=== PATIENT | male | born 1985 | race Caucasian/White ===

== ENCOUNTER 2017-08-02 17:22 | Emergency (ER) | payer SELFPAY ==
[2017-08-02 18:59] LABS: URINE BILIRUBIN NEGATIVE (NEGATIVE); URINE BLOOD NEGATIVE (NEGATIVE); URINE CLARITY CLEAR (Clear); URINE COLOR YELLOW (YELLOW); URINE GLUCOSE (UA) NEGATIVE (Normal)
[2017-08-02 19:00] LABS: URINE BACTERIA RARE (<OCC); URINE LEUKOCYTE ESTERASE NEGATIVE Leu/uL (Negative); URINE NITRATE NEGATIVE (NEGATIVE); URINE PROTEIN NEGATIVE (NEGATIVE); URINE UROBILINOGEN NORMAL mg/dL (0.2-1.0)
--- NOTE | 2017-08-02 19:15 | C.PDOC ---
History Of Present Illness 32 yr old male presents to the ER with evaluation of left ear pain for the past 2 days, associated with swollen lymph nodes in the neck, body aches, sore throat and subjective fever. Patient also reports of 1-2 episode of dysuria. Denies chills, ear discharge, nausea, vomiting, abdominal pain, incontinence or penile discharge. Time Seen by Provider: 08/02/17 19:04 Chief Complaint (Nursing): Male Genitourinary History Per: Patient History/Exam Limitations: no limitations Onset/Duration Of Symptoms: Days (2) Past Medical History Reviewed: Historical Data, Nursing Documentation, Vital Signs Vital Signs: Last Vital Signs Temp 100.3 F H 08/02/17 18:09 Pulse 93 H 08/02/17 18:01 Resp 14 08/02/17 18:01 BP 155/81 H 08/02/17 18:01 Pulse Ox 100 08/02/17 19:22 Family History: States: No Known Family Hx - Social History Hx Tobacco Use: No Hx Alcohol Use: Yes Hx Substance Use: No - Immunization History Hx Tetanus Toxoid Vaccination: No Hx Influenza Vaccination: No Hx Pneumococcal Vaccination: No Review Of Systems Constitutional: Positive for: Fever (subjective), Other ((+) Body aches). Negative for: Chills ENT: Positive for: Ear Pain (left), Throat Pain (sore throat). Negative for: Ear Discharge Gastrointestinal: Negative for: Nausea, Vomiting, Abdominal Pain Genitourinary: Positive for: Dysuria. Negative for: Incontinence, Penile Discharge Physical Exam - Physical Exam Appears: Non-toxic, No Acute Distress Skin: Warm, Dry, No Rash Ear(s): Bilateral: Normal Oral Mucosa: Moist Throat: Erythema, No Exudate Neck: Normal, Normal ROM, Supple Lymphatic: Adenopathy (Submandibular bilateral adenopathy) Cardiovascular: Rhythm Regular, No Murmur Respiratory: Normal Breath Sounds, No Rales, No Rhonchi, No Stridor, No Wheezing Extremity: Normal ROM, No Swelling Neurological/Psych: Oriented x3, Normal Speech ED Course And Treatment O2 Sat by Pulse Oximetry: 100 (RA) Pulse Ox Interpretation: Normal Medical Decision Making Medical Decision Making: PLAN: * Chlamydia GC * Urinalysis * Tylenol PO 815 pm rapid strep neg; pt with flu like symptoms, will d/c with tamiflu and motrin Disposition Counseled Patient/Family Regarding: Studies Performed, Diagnosis, Need For Followup, Rx Given - Disposition Referrals: Shaik Flores MD [Staff Provider] - Disposition: HOME/ ROUTINE Disposition Time: 20:16 Condition: STABLE Additional Instructions: Take tamiflu and ibuprofen as directed. Increase fluid intake, stay well hydrated. more bed rest. Follow up wiht your doctor in a few days. Prescriptions: Ibuprofen [Motrin] 600 mg PO TID #30 tab Oseltamivir Phosphate [Tamiflu] 75 mg PO BID #10 capsule Instructions: Influenza (ED) Forms: [facility] (Dominican), General Discharge Instructions, Work Excuse - Clinical Impression Clinical Impression: Influenza-like illness - PA / [employer] / Resident Statement MD/DO has reviewed & agrees with the documentation as recorded. - Scribe Statement The provider has reviewed the documentation as recorded by the Scribe Vilma aSravia All medical record entries made by the Scribe were at my direction and personally dictated by me. I have reviewed the chart and agree that the record accurately reflects my personal performance of the history, physical exam, medical decision making, and the department course for this patient. I have also personally directed, reviewed, and agree with the discharge instructions and disposition.
[2017-08-02 20:26] VITALS: BP 124/79; PULSE 80; RESP 18; TEMP 100.4
[2017-08-03 02:50] VITALS: O2SAT 100
== END 2017-08-02 20:41 | disposition home or self-care (01) ==
LOC: C.ER 17:22
DX: J11.1 Influenza due to unidentified influenza virus with other respiratory manifestations (principal)

== ENCOUNTER 2017-11-23 08:29 | Emergency (ER) | payer OTHER ==
[2017-11-23 08:31] VITALS: BP 131/75; PULSE 112; RESP 20; TEMP 100; O2SAT 99
[2017-11-23] MEDS ORDERED: Naproxen 550 mg Tab PO STA (09:11)
--- NOTE | 2017-11-23 09:15 | C.PDOC ---
Time Seen by Provider: 11/23/17 08:36 Chief Complaint (Nursing): ENT Problem History Per: Patient Onset/Duration Of Symptoms: Days (1) Current Symptoms Are (Timing): Still Present Associated Symptoms: Fever, Sore Throat, Myalgias Severity: Moderate Additional History Per: Prior Records Past Medical History Reviewed: Historical Data, Nursing Documentation, Vital Signs Vital Signs: Last Vital Signs Temp 100 F H 11/23/17 08:30 Pulse 112 H 11/23/17 08:30 Resp 20 11/23/17 08:30 BP 131/75 11/23/17 08:30 Pulse Ox 99 11/23/17 08:30 - Medical History PMH: No Chronic Diseases Family History: States: Unknown Family Hx - Social History Hx Tobacco Use: No Hx Alcohol Use: Yes Hx Substance Use: No - Immunization History Hx Tetanus Toxoid Vaccination: No Hx Influenza Vaccination: No Hx Pneumococcal Vaccination: No Review Of Systems Except As Marked, All Systems Reviewed And Found Negative. Constitutional: Positive for: Fever, Malaise ENT: Positive for: Throat Pain. Negative for: Ear Pain, Nose Congestion Cardiovascular: Negative for: Chest Pain Respiratory: Negative for: Cough, Shortness of Breath Gastrointestinal: Negative for: Vomiting Skin: Negative for: Rash Neurological: Negative for: Weakness, Numbness Physical Exam - Physical Exam Appears: Non-toxic, No Acute Distress Skin: Normal Color, Warm, Dry, No Rash Head: Atraumatic, Normacephalic Eye(s): bilateral: PERRL, EOMI Oral Mucosa: Moist, No Drooling, No Trismus Throat: Erythema, Exudate, No Drooling, No Mass Neck: Normal ROM, Supple Lymphatic: Adenopathy (cervical) Cardiovascular: Rhythm Regular Respiratory: Normal Breath Sounds, No Accessory Muscle Use Gastrointestinal/Abdominal: Soft Extremity: Normal ROM Neurological/Psych: Oriented x3, Normal Speech, Normal Motor, Normal Sensation ED Course And Treatment O2 Sat by Pulse Oximetry: 99 Pulse Ox Interpretation: Normal Disposition Counseled Patient/Family Regarding: Diagnosis, Need For Followup, Rx Given - Disposition Referrals: [facility] [Outside] Disposition: HOME/ ROUTINE Disposition Time: 09:14 Condition: STABLE Additional Instructions: Follow up with your doctor or in the clinic. Return to the ER if you develop trouble breathing or swallowing, worsening of symptoms or if you have any other concerns. Prescriptions: Amoxicillin 875 mg PO BID #20 tab Naproxen [Naprosyn] 1 tab PO BID PRN #20 tab PRN Reason: Pain Instructions: Strep Throat (DC) - Clinical Impression Clinical Impression: Exudative pharyngitis
[2017-11-23] MEDS ORDERED: Naproxen 550 mg Tab PO ONE (09:17)
== END 2017-11-23 09:31 | disposition home or self-care (01) ==
LOC: C.ER 08:29
DX: J02.9 Acute pharyngitis, unspecified (principal)